=== PATIENT | male | born 1960 | race Caucasian/White ===

== ENCOUNTER 2019-07-05 19:23 | Emergency (ER) | payer BC ==
[2019-07-05 19:44] LABS: ABS Basophils 0.1 10^3/ul (0-0.2); ABS Eosinophils 0.3 10^3/ul (0-0.6); ABS Lymphocytes 2.7 10^3/ul (1.0-4.8); ABS Monocytes 0.7 10^3/ul (0-0.8); ABS Neutrophils 3.3 10^3/ul (1.5-7.7); Eosinophil % 4.4 %; Hematocrit 43 % (42-52); Mean Corpuscular HGB Conc 33 g/dL (31-36); Mean Corpuscular Hemoglobin 27 pg (27-31); Mean Corpuscular Volume 83 fL (80-94); Mean Platelet Volume 8.4 fL (7.4-10.4); Nucleated Red Blood Cells % 0.1; Platelet Count 183 10^3/uL (150-450); Red Cell Distribution Width 15 % (10-15)
[2019-07-05 19:50] LABS: INR 1.02 (0.82-1.09)
[2019-07-05 20:18] LABS: Albumin 4.5 g/dL (3.2-5.2); Calcium 9.6 mg/dL (8.6-10.3); Potassium 3.7 mmol/L (3.5-5.0); Total Bilirubin 0.5 mg/dL (0.2-1.0)
[2019-07-05 20:24] LABS: Albumin/Globulin Ratio 1.7 (1-3); BUN/Creatinine Ratio 26.8 (8-20); EGFR African American 96.5 (>60); EGFR Non-African American 79.8 (>60); Globulin 2.7 g/dL (2-4); Total Protein 7.2 g/dL (6.4-8.9)
--- NOTE | 2019-07-05 20:48 | ED ---
HPI Chest Pain - HPI Summary HPI Summary: This pt is a 59 Y/O M presenting to [facility] with a CC of intermittent CP that was centrally located and rated a 3-4/10 in severity and has been present for the past week. He states that he has no SOB with these episodes. He states that the pain occurs randomly and without any known aggravating factors. He states that the pain is not related to exercise or eating. He denies any recent fevers, headaches, chills, N/V, diaphoresis, or coughs. He states that he has no known aggravating or alleviating factors. He had a recent NV in October 2018 and has 2 cardiac stents but states that he has been recovering well. He states no other PMHx. - History of Current Complaint Chief Complaint: EDChestPainROMI Time Seen by Provider: 07/05/19 20:36 Hx Obtained From: Patient Onset/Duration: Started Weeks Ago - 1 Timing: Intermittent, Lasting Minutes Initial Severity: Mild Current Severity: Mild Pain Intensity: 3 Pain Scale Used: 0-10 Numeric Chest Pain Location: Discrete at:, Mid Sternal Chest Pain Radiates: No Aggravating Factor(s): Nothing Alleviating Factor(s): Nothing Associated Signs and Symptoms: Positive: Chest Pain. Negative: Headaches, Shortness of Breath, Fever, Chills, Diaphoresis, Nausea, Cough, Vomiting - Allergy/Home Medications Allergies/Adverse Reactions: Allergies Allergy/AdvReac Type Severity Reaction Status Date / Time Sulfa (Sulfonamide Allergy Hives Verified 07/05/19 19:55 Antibiotics) PMH/Surg Hx/FS Hx/Imm Hx Previously Healthy: Yes Cardiovascular History: Reports: Hx Cardiac Arrest - October 2018 Denies: Hx Hypertension Respiratory History: Denies: Hx Chronic Obstructive Pulmonary Disease (COPD) Sensory History: Reports: Hx Contacts or Glasses Opthamlomology History: Reports: Hx Contacts or Glasses - Cancer History Hx Chemotherapy: No Hx Radiation Therapy: No - Surgical History Surgical History: Yes Surgery Procedure, Year, and Place: Stents following October 2018 NV - Immunization History Immunizations Up to Date: Yes Infectious Disease History: No Infectious Disease History: Denies: Traveled Outside the [place] in Last 30 Days - Social History Alcohol Use: None Substance Use Type: Reports: None Smoking Status (MU): Never Smoked Tobacco Review of Systems Negative: Fever, Chills, Skin Diaphoresis Positive: Chest Pain Negative: Shortness Of Breath, Cough Negative: Vomiting, Nausea Negative: Headache All Other Systems Reviewed And Are Negative: Yes Physical Exam - Summary Physical Exam Summary: Constitutional: Well-developed, Well-nourished, Alert. (-) Distressed Skin: Warm, Dry HENT: Normocephalic; Atraumatic Eyes: Conjunctiva normal Neck: Musculoskeletal ROM normal neck. (-) JVD, (-) Stridor, (-) Tracheal deviation Cardio: Rhythm regular, rate normal, Heart sounds normal; Intact distal pulses; The pedal pulses are 2+ and symmetric. Radial pulses are 2+ and symmetric. (-) Murmur Pulmonary/Chest wall: Effort normal. (-) Respiratory distress, (-) Wheezes, (-) Rales Abd: Soft, (-) tenderness, (-) Distension, (-) Guarding, (-) Rebound Musculoskeletal: (-) Edema Lymph: (-) Cervical adenopathy Neuro: Alert, Oriented x3 Psych: Mood and affect Normal Triage Information Reviewed: Yes Vital Signs On Initial Exam: Initial Vitals Temp Pulse Resp BP Pulse Ox 98.3 F 63 15 138/98 98 07/05/19 19:51 07/05/19 19:51 07/05/19 19:51 07/05/19 19:51 07/05/19 19:51 Vital Signs Reviewed: Yes Procedures - Sedation Patient Received Moderate/Deep Sedation with Procedure: No Diagnostics - Vital Signs Vital Signs Temp Pulse Resp BP Pulse Ox 07/05/19 20:36 19 07/05/19 20:34 18 132/86 07/05/19 19:51 98.3 F 63 15 138/98 98 - Laboratory Lab Results: Lab Results 07/05/19 07/05/19 07/05/19 Range/Units 19:35 19:35 19:35 WBC 7.0 (3.5-10.8) 10^3/uL RBC 5.20 (4.18-5.48) 10^6 /uL Hgb 14.0 (14.0-18.0) g/dL Hct 43 (42-52) % MCV 83 (80-94) fL MCH 27 (27-31) pg MCHC 33 (31-36) g/dL RDW 15 (10-15) % Plt Count 183 (150-450) 10^3/uL MPV 8.4 (7.4-10.4) fL Neut % (Auto) 46.9 % Lymph % (Auto) 38.0 % Crook % (Auto) 9.9 % Eos % (Auto) 4.4 % Baso % (Auto) 0.8 % Absolute Neuts (auto) 3.3 (1.5-7.7) 10^3/ul Absolute Lymphs (auto) 2.7 (1.0-4.8) 10^3/ul Absolute Monos (auto) 0.7 (0-0.8) 10^3/ul Absolute Eos (auto) 0.3 (0-0.6) 10^3/ul Absolute Basos (auto) 0.1 (0-0.2) 10^3/ul Absolute Nucleated RBC 0.0 10^3/ul Nucleated RBC % 0.1 INR (Anticoag Therapy) 1.02 (0.82-1.09) Sodium 141 (135-145) mmol/L Potassium 3.7 (3.5-5.0) mmol/L Chloride 109 (101-111) mmol/L Carbon Dioxide 26 (22-32) mmol/L Anion Gap 6 (2-11) mmol/L BUN 26 H (6-24) mg/dL Creatinine 0.97 (0.67-1.17) mg/dL Est GFR ( Amer) 96.5 (>60) Est GFR (Non-Af Amer) 79.8 (>60) BUN/Creatinine Ratio 26.8 H (8-20) Glucose 133 H (70-100) mg/dL Calcium 9.6 (8.6-10.3) mg/dL Total Bilirubin 0.50 (0.2-1.0) mg/dL AST 22 (13-39) U/L ALT 27 (7-52) U/L Alkaline Phosphatase 75 (34-104) U/L Troponin I 0.00 (<0.03) ng/mL Total Protein 7.2 (6.4-8.9) g/dL Albumin 4.5 (3.2-5.2) g/dL Globulin 2.7 (2-4) g/dL Albumin/Globulin Ratio 1.7 (1-3) Result Diagrams: 07/05/19 19:35 02/16/20 19:35 Lab Statement: Any lab studies that have been ordered have been reviewed, and results considered in the medical decision making process. - EKG 1928 Cardiac Rate: NL - 67 BPM EKG Rhythm: Sinus Rhythm ST Segment: Normal Ectopy: None Summary of EKG Findings: EKG at 1928 shows NSR at 67 BPM, P waves, QRS complex, and T waves are within normal limits, T waves and intervals are normal, no ischemic changes. This is a normal EKG. Interpreted by Dr. Diggs at 1930. Chest Pain Course/Dx - Course Course Of Treatment: This pt is a 59 Y/O M presenting to [facility] with a CC of intermittent CP that was centrally located and rated a 3-4/10 in severity and has been present for the past week. He states that he has no SOB with these episodes. He states that the pain occurs randomly and without any known aggravating factors. He states that the pain is not related to exercise or eating. He denies any recent fevers, headaches, chills, N/V, diaphoresis, or coughs. He states that he has no known aggravating or alleviating factors. He has no abnormalities on his PE. He has no abnormalities on his Labratory results. EKG at 1928 shows NSR at 67 BPM, P waves, QRS complex, and T waves are within normal limits, T waves and intervals are normal, no ischemic changes. This is a normal EKG. Interpreted by Dr. Diggs at 193007/05/2019. He will be discharged home with a Dx of Atypical chest pain. - Diagnoses Provider Diagnoses: Atypical chest pain Discharge ED - Sign-Out/Discharge Documenting (check all that apply): Patient Departure - discharge - Discharge Plan Condition: Stable Disposition: HOME Prescriptions: Omeprazole CAP (NF) [Prilosec CAP* 20 MG] 20 mg PO DAILY #30 Patient Education Materials: Chest Pain (ED) Referrals: Dinah Anderson MD [Medical Doctor] - Additional Instructions: Your studies tonight fortunately did not show any sign of a heart attack or that your discomfort is originating in the heart. 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 Common things being common, the discomfort could be coming from an esophageal problem, so I have prescribed some medication with that possibility in mind. - Billing Disposition and Condition Condition: STABLE Disposition: Home - Attestation Statements Document Initiated by Pat: Yes Documenting Scribe: Giancarlo Smiley Provider For Whom Pat is Documenting (Include Credential): Albin Diggs MD Scribe Attestation: Giancarlo Mcneil, scribed for Albin Diggs MD on 07/06/19 at 1916. Scribe Documentation Reviewed: Yes Provider Attestation: The documentation as recorded by the Giancarlo gomez accurately reflects the service I personally performed and the decisions made by meAlbin MD Status of Scribe Document: Viewed
[2019-07-05 21:03] VITALS: BP 127/78
== END 2019-07-05 21:02 | disposition home or self-care (01) ==
LOC: ED 19:23
DX: R07.89 Other chest pain (principal); I25.2 Old myocardial infarction; Z95.5 Presence of coronary angioplasty implant and graft; Z86.74 Personal history of sudden cardiac arrest; Z88.2 Allergy status to sulfonamides
CPT/HCPCS: 36415; 80053; 84484; 85025; 85610; 93005; 99283